=== PATIENT | female | born 1980 | race Two or more races ===

== ENCOUNTER 2023-07-01 11:08 | Outpatient (AMB) | payer MEDICARE, SELFPAY ==
--- NOTE | 2023-07-01 11:31 | MHC.OFFVIS ---
Intake Vital Signs 07/01/23 11:50 BP 121/72 Blood Pressure Location Lt brachial Position Sitting Pulse 93 Pulse Source Pulse Oximeter Temp 97.5 F Temp Source Oral Pulse Oximetry (%) 98 Intake Visit Reasons: Ref.jeff Kamara DR,Breanna Morgan,Hydradenitis Allergies sulfamethoxazole [From Bactrim] Allergy (Unknown, Verified 07/01/23 11:58) Unknown trimethoprim [From Bactrim] Allergy (Unknown, Verified 07/01/23 11:58) Unknown HPI Ref.jeff Kamara DR,Breanna Morgan,Hydradenitis HPI Details She is here for referral hidradenitis suppurativa, chronic and recurrent. She has worse axilla disease and is scheduled for surgery for painful scarring Dr Xiao. She was on Clindamycin in April twice with some success. She has had groin area lesions also. [facility] Medical History (Updated 07/07/23 @ 23:06 by Verena Avelar MD) Suppurative hidradenitis Nephrolithiasis Depression Diabetes mellitus Surgical History (Updated 07/07/23 @ 23:05 by Verena Avelar MD) History of sleeve gastrectomy History of cholecystectomy H/O hysterectomy for benign disease Review of Systems Const All systems reviewed & are unremarkable except as noted in HPI and below Physical Exam Vital Signs: Last Vital Signs Temp 97.5 F 07/01/23 11:50 Pulse 93 07/01/23 11:50 BP 121/72 07/01/23 11:50 Pulse Ox 98 07/01/23 11:50 Const General: cooperative Orientation/consciousness: patient oriented x3 HEENT Head: Yes normal to inspection Mouth: Normal oral and palatal mucosa present Eyes General: appearance normal, both eyes and all related structures Pupils: Equal, round and reactive pupils present Resp Effort & Inspection: normal respiratory effort Cardio Rate: regular rate Rhythm: regular rhythm GI Palpation (GI): Soft to palpation and nontender General: Yes no CVA tenderness Back/Spine/Pelvis Back: no CVA tenderness Skin Other: old scarring right axilla Neuro General: patient oriented x3 Cranial nerves: Yes CN's II-XII intact bilaterally and Yes Equal, round and reactive pupils present Extrem General: Yes normal to inspection Psych Appearance: grossly normal Assessment & Plan Assessment & Plan (1) Suppurative hidradenitis: Comment: She has had chronic discomfort from hidradenitis Code(s): L73.2 - Hidradenitis suppurativa Plan: Azithromycin 500 mg three times a week. OK for surgery Dr Xiao. See in six months if still has problem and needs medication. Medications: New azithromycin 500 mg PO 3XW 30 days 13 tabs 5RF Coding Level of Care Code New Pt Level 3 (13950) Diagnoses Suppurative hidradenitis L73.2
[2023-07-01 11:50] VITALS: BP 121/72; PULSE 93; TEMP 36.4; O2SAT 98
== END 2023-07-01 13:16 | disposition home or self-care (01) ==
LOC: HO.HID 11:09
PROVIDERS: PCP Internal Medicine; Visit Provider Internal Medicine
DX: L73.2 Hidradenitis suppurativa (principal)
CPT/HCPCS: 99203

== ENCOUNTER → 2023-07-01 11:08 | Outpatient (BNVA) | payer MEDICARE, SELFPAY | PROVIDERS: PCP Internal Medicine; Visit Provider Internal Medicine | DX: L73.2 Hidradenitis suppurativa (principal) | CPT/HCPCS: 99202 ==

== ENCOUNTER 2023-11-02 13:03 | Outpatient (AMB) | payer MEDICARE, SELFPAY ==
--- NOTE | 2023-11-02 13:18 | MHC.OFFVIS ---
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 She said azithromycin helped, [facility] Medical History Suppurative hidradenitis Nephrolithiasis Depression Diabetes mellitus Surgical History History of sleeve gastrectomy History of cholecystectomy H/O hysterectomy for benign disease Review of Systems Const All systems reviewed & are unremarkable except as noted in HPI and below Physical Exam Vital Signs: Last Vital Signs Pulse 80 11/02/23 13:30 BP 136/80 11/02/23 13:30 Pulse Ox 98 11/02/23 13:30 Oxygen Delivery Method Room Air 11/02/23 13:30 Const Other: General: cooperative Orientation/consciousness: patient oriented x3 HEENT Head: Yes normal to inspection Mouth: Normal oral and palatal mucosa present Eyes General: appearance normal, both eyes and all related structures Pupils: Equal, round and reactive pupils present Resp Effort & Inspection: normal respiratory effort Cardio Rate: regular rate Rhythm: regular rhythm GI Palpation (GI): Soft to palpation and nontender General: Yes no CVA tenderness Back/Spine/Pelvis Back: no CVA tenderness Skin General skin exam: no rashes or lesions noted Neuro General: patient oriented x3 Cranial nerves: Yes CN's II-XII intact bilaterally and Yes Equal, round and reactive pupils present Extrem General: Yes normal to inspection Psych Appearance: grossly normal Assessment & Plan Assessment & Plan (1) H/O hysterectomy for benign disease: Comment: n/a Code(s): Z90.710 - Acquired absence of both cervix and uterus Category: Surgical Plan: na/sas (2) Suppurative hidradenitis: Comment: She has had chronic discomfort from hidradenitis Code(s): L73.2 - Hidradenitis suppurativa Category: Medical Plan: Continue azithromycin See in six months (3) History of sleeve gastrectomy: Comment: per above Code(s): Z90.3 - Acquired absence of stomach [part of] Category: Surgical Plan: as aboeve Medications: Refilled fluconazole (Diflucan) 100 mg PO DAILY 1 tab 3RF azithromycin 500 mg PO 3XW 30 days 13 tabs 5RF Coding Level of Care Code Est Pt Level 3 (12113) Diagnoses H/O hysterectomy for benign disease Z90.710 Suppurative hidradenitis L73.2 History of sleeve gastrectomy Z90.3
[2023-11-02 13:30] VITALS: BP 136/80; PULSE 80; O2SAT 98
== END 2023-11-02 14:30 | disposition home or self-care (01) ==
PROVIDERS: PCP Internal Medicine; Visit Provider Internal Medicine
DX: Z90.710 Acquired absence of both cervix and uterus (principal); L73.2 Hidradenitis suppurativa; Z90.3 Acquired absence of stomach [part of]
CPT/HCPCS: 99213

== ENCOUNTER → 2023-11-02 13:03 | Outpatient (BNVA) | payer MEDICARE, SELFPAY | PROVIDERS: PCP Internal Medicine; Visit Provider Internal Medicine | DX: L73.2 Hidradenitis suppurativa (principal); Z90.710 Acquired absence of both cervix and uterus; Z90.3 Acquired absence of stomach [part of] | CPT/HCPCS: 99212 ==

== ENCOUNTER 2024-10-22 13:38 | Outpatient (AMB) | payer MEDICARE, MEDICAID, SELFPAY ==
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
[2024-10-22 13:50] VITALS: BP 117/79; PULSE 80; O2SAT 97; BMI 33.2
== END 2024-10-22 14:29 | disposition home or self-care (01) ==
PROVIDERS: PCP Student in an Organized Health Care Education/Training Program; Referring Provider Student in an Organized Health Care Education/Training Program; Visit Provider Nurse Practitioner Family
DX: M79.7 Fibromyalgia (principal); M54.2 Cervicalgia; M25.512 Pain in left shoulder; G89.4 Chronic pain syndrome; M47.812 Spondylosis without myelopathy or radiculopathy, cervical region; M54.50 Low back pain, unspecified; G89.29 Other chronic pain
CPT/HCPCS: 99204

== ENCOUNTER → 2024-10-22 13:38 | Outpatient (BNVA) | payer MEDICARE, MEDICAID, SELFPAY | PROVIDERS: PCP Student in an Organized Health Care Education/Training Program; Referring Provider Student in an Organized Health Care Education/Training Program; Visit Provider Nurse Practitioner Family | DX: M79.7 Fibromyalgia (principal); M25.512 Pain in left shoulder; G89.4 Chronic pain syndrome; M47.812 Spondylosis without myelopathy or radiculopathy, cervical region; M54.50 Low back pain, unspecified | CPT/HCPCS: 99202 ==